=== PATIENT | male | born 1995 | race Caucasian/White ===

== ENCOUNTER 2023-05-23 15:09 | Emergency (ER) | payer BC, SELFPAY ==
[2023-05-23 15:14] VITALS: BP 132/77; PULSE 85; RESP 18; TEMP 37.1; O2SAT 99
--- NOTE | 2023-05-23 18:27 | ED.LOWEXIN ---
HPI - Extremity Injury (Lower) General Chief Complaint: Extremity Injury, Lower Stated Complaint: left leg pain Time Seen by Provider: 05/23/23 17:12 History of Present Illness HPI Narrative: Patient is a 28-year-old male presenting with left thigh pain. Patient states that he was at work when he was struck by a forklift and his left thigh was pinned between the forklift and the wall. States that he was seen at another hospital and all the x-rays were normal. States that he is still having significant pain and does not feel that he can go back to work. He is asking for pain medicine. He denies numbness or weakness. He denies swelling or bruising. Denies further complaints. Related Data Allergies Allergy/AdvReac Type Severity Reaction Status Date / Time No Known Allergies Allergy Verified 05/23/23 17:41 Review of Systems Review of Systems: All systems reviewed & are unremarkable except as noted in HPI and below Exam Narrative: GENERAL: Well-appearing, well-nourished, and in no acute distress. HEAD: Normocephalic, atraumatic. EYES: PERRLA and EOMI. ENT: Nares clear, no rhinorrhea or epistaxis. Mucous membranes moist. NECK: Supple. CHEST: No respiratory distress. HEART: Regular rate and rhythm. Normal peripheral pulses. ABDOMEN: Soft, nondistended EXTREMITIES: Normal range of motion. No edema. no bruising of upper thigh, compartments are soft, mildly tender SKIN: Warm, dry, no rash. NEURO: No focal deficits. Alert and oriented x3. PSYCH: Normal mood and affect. Course Vital Signs Vital signs: Vital Signs Temperature 98.7 F 05/23/23 15:14 Pulse Rate 85 05/23/23 15:14 Respiratory Rate 18 05/23/23 15:14 Blood Pressure 132/77 05/23/23 15:14 Pulse Oximetry 99 05/23/23 15:14 Temperature 98.7 F 05/23/23 15:14 Pulse Rate 85 05/23/23 15:14 Respiratory Rate 18 05/23/23 15:14 Blood Pressure 132/77 05/23/23 15:14 Pulse Oximetry 99 05/23/23 15:14 MDM - Extremity Injury (Lower) MDM Narrative Medical decision making narrative: Patient is a 28-year-old male presenting with left thigh pain after being struck by a forklift. Vitals are stable. Exam remarkable for the above. His compartments are nice and soft. There is no bruising or swelling. Neuro intact. Advised Tylenol and ibuprofen for pain control. Advised rest and icing. Will provide short course of Flexeril for muscle spasms. Appropriate return precautions given. Discharged in stable condition. Differential Diagnosis Differential diagnosis: Likely other (forklift accident, thigh pain, knee pain, leg pain) Critical Care Time Critical Care Time Critical Care Time: No Discharge Plan Discharge Clinical Impression: Musculoskeletal leg pain, Forklift accident Patient Disposition: Home, Self-Care Condition: Stable Instructions: Antibiotic Form, Musculoskeletal Pain (ED) Additional Instructions: Please rest and apply ice to the affected area for the next several days. We recommend alternating between Tylenol and ibuprofen for pain control. You may use the Flexeril as needed for severe breakthrough through pain and muscle spasms. We recommend following up with PCP within 1-3 days. If your symptoms worsen, you develop chest pain, shortness of breath, numbness or weakness, vomiting, fevers >100.4F, or other concerning symptoms arise, please return to the ER. Prescriptions: New cyclobenzaprine 10 mg tablet 10 mg PO TID PRN (Reason: muscle spasm) Qty: 14 0RF Follow-up/Referrals: Newton,Yancy Abbasi NP [Primary Care Provider] - Stand Alone Forms: Work/School Release IP
[2023-05-23] MEDS: ACETAMINOPHEN 500 MG TABLET 1000 MG PO (18:32)
[2023-05-23] MEDS: IBUPROFEN 400 MG TABLET 800 MG PO (18:33)
[2023-05-23] MEDS: CYCLOBENZAPRINE HCL 10 MG TABLET PO (18:33)
== END 2023-05-23 18:41 | disposition home or self-care (01) ==
PROVIDERS: Emergency Provider Emergency Medicine; PCP Nurse Practitioner Family
DX: S79.922A Unspecified injury of left thigh, initial encounter (principal); W24.0XXA Contact with lifting devices, not elsewhere classified, initial encounter
CPT/HCPCS: 99283; A9270